=== PATIENT | female | born 1990 | race Two or more races ===

== ENCOUNTER 2017-07-27 08:39 | Emergency (ER) | payer OTHER ==
[~2017-07-27] VITALS: Ht 157.5 cm; Wt 54.4 kg
[~2017-07-27 08:39] MED LIST: KETO10TA2 PO
== END 2017-07-27 14:33 | disposition home or self-care (01) ==
LOC: ER 08:39
DX: K29.60 Other gastritis without bleeding (principal); R10.13 Epigastric pain

== ENCOUNTER 2020-06-15 14:33 | Emergency (ER) | payer OTHER ==
[~2020-06-15] VITALS: Ht 157.5 cm; Wt 89.8 kg
[2020-06-15] MEDS ORDERED: SEROQUEL25 MG (15:17)
[2020-06-15] MEDS ORDERED: RESTORIL30 MG (15:17)
[2020-06-15] MEDS ORDERED: XANAX2 MG (15:18)
[2020-06-15] MEDS ORDERED: LAMICTAL200 M1 (15:18)
[2020-06-15] MEDS ORDERED: NABUMETONE500 MG PO (16:48)
== END 2020-06-15 16:53 | disposition home or self-care (01) ==
LOC: ER 14:33
DX: M54.5 Low back pain (principal); M79.672 Pain in left foot

== ENCOUNTER 2020-06-18 20:04 | Emergency (ER) | payer OTHER ==
[~2020-06-18] VITALS: Ht 157.5 cm; Wt 89.4 kg
[~2020-06-18 20:04] MED LIST changes: +LAMICTAL200 M1; +NABUMETONE500 MG PO; +RESTORIL30 MG; +SEROQUEL25 MG; +XANAX2 MG
[2020-06-18] MEDS ORDERED: SEROQUEL400 MG (20:39)
== END 2020-06-19 06:09 | disposition home or self-care (01) ==
LOC: ER 20:04
DX: J35.01 Chronic tonsillitis (principal); Z03.818 Encounter for observation for suspected exposure to other biological agents ruled out

== ENCOUNTER 2020-11-20 12:03 | Emergency (ER) | payer OTHER ==
[~2020-11-20] VITALS: Ht 157.5 cm; Wt 81.6 kg
[~2020-11-20 12:03] MED LIST changes: +SEROQUEL400 MG
[2020-11-20] MEDS ORDERED: AMBIEN10 MG PO (12:30)
[2020-11-20] MEDS ORDERED: PEPCID AC20 MG PO (17:56)
[2020-11-20] MEDS ORDERED: INTESTINEX680 M1 PO (17:56)
== END 2020-11-20 18:22 | disposition home or self-care (01) ==
LOC: ER 12:03
DX: K29.00 Acute gastritis without bleeding (principal)

== ENCOUNTER 2021-01-27 13:45 | Emergency (ER) | payer OTHER ==
[~2021-01-27] VITALS: Ht 157.5 cm; Wt 77.1 kg
[~2021-01-27 13:45] MED LIST changes: +AMBIEN10 MG PO; +INTESTINEX680 M1 PO; +PEPCID AC20 MG PO
== END 2021-01-27 20:43 | disposition home or self-care (01) ==
LOC: ER 13:45
DX: R10.9 Unspecified abdominal pain (principal)

== ENCOUNTER 2022-04-06 19:46 | Emergency (ER) | payer OTHER ==
[~2022-04-06] VITALS: Ht 157.5 cm; Wt 99.8 kg
[2022-04-06] MEDS ORDERED: VISTARIL50 MG PO (20:20)
[2022-04-07] MEDS ORDERED: VASOTEC5 MG PO (03:55)
== END 2022-04-07 04:13 ==
LOC: ER 19:46
DX: I10 Essential (primary) hypertension (principal)

== ENCOUNTER 2022-07-25 18:49 | Emergency (ER) | payer OTHER ==
[~2022-07-25] VITALS: Ht 160 cm; Wt 90.7 kg
[~2022-07-25 18:49] MED LIST changes: +VASOTEC5 MG PO; +VISTARIL50 MG PO
== END 2022-07-25 20:37 | disposition home or self-care (01) ==
LOC: ER 18:49
DX: J06.9 Acute upper respiratory infection, unspecified (principal); Z20.822 Contact with and (suspected) exposure to COVID-19

== ENCOUNTER 2023-07-29 21:55 | Emergency (ER) | payer OTHER ==
[~2023-07-29] VITALS: Ht 157.5 cm; Wt 99.8 kg
== END 2023-07-30 01:54 ==
LOC: ER 21:55
DX: R00.2 Palpitations (principal); F10.929 Alcohol use, unspecified with intoxication, unspecified

== ENCOUNTER → 2023-11-09 | Emergency (ER) | payer OTHER ==
[~2023-11-09] MED LIST changes: +TRAZODONE HCL300 MG PO
== END | disposition left against medical advice (07) ==
LOC: ER 18:20
DX: Z53.21 Procedure and treatment not carried out due to patient leaving prior to being seen by health care provider (principal)

== ENCOUNTER 2024-02-07 21:49 | Emergency (ER) | payer OTHER ==
[~2024-02-07] VITALS: Ht 157.5 cm; Wt 108.9 kg
[2024-02-07] MEDS ORDERED: IPRATROPIUM BROMIDE 0.5 MG/2.5 ML AMPUL.NEB IH SCH (22:15)
[2024-02-07] MEDS ORDERED: METHYLPREDNISOLONE SOD SUCC 125 MG VIAL IV ONE (22:15)
[2024-02-07] MEDS ORDERED: LEVALBUTEROL HCL 1.25 MG/3 ML SOLUTION IH SCH (22:15)
[2024-02-07 22:29] LABS: ABG PO2 73.8 mmHg (80-100); ABG pCO2 50.1 mmHg (35-45); BASE EXCESS 3.6 mmol/l; BICARBONATE 29.6 mmol/l (23-25); SaO2 94.6 %; Tco2 31.2 mmol/l
[2024-02-07 22:36] LABS: allen test SATISFACTORY; o2 21 %; puncture site RADIAL RIGHT
[2024-02-07 23:34] LABS: HEMATOCRIT 36.9 % (36.0-45.00); HEMOGLOBIN 12.2 g/dL (12.0-15.00); MEAN CORPUSCULAR HEMOGLOBIN 26.7 pg (27.00-32.0); PLATELET COUNT 310 K/uL (150-450); RED BLOOD COUNT 4.56 M/uL (4.00-6.00)
[2024-02-07 23:52] LABS: CALCIUM 8.8 mg/dL (8.5-10.1); CREATININE SERUM 0.71 mg/dL (0.55-1.02); GFR 96.01; POTASSIUM 3.79 mEq/L (3.5-5.1)
[2024-02-08] MEDS ORDERED: ZYNCOF 20-400120 ML PO (01:32)
[2024-02-08] MEDS ORDERED: BUDESONIDE0.5 MG/2 M IH (01:32)
[2024-02-08] MEDS ORDERED: ALBUTEROL2.5 MG/3 M IH (01:32)
[2024-02-08 06:29] LABS: ABG PH 7.397 (7.35-7.45); ABG PO2 83.6 mmHg (80-100); ABG pCO2 47.1 mmHg (35-45); BASE EXCESS 2.7 mmol/l; BICARBONATE 28.3 mmol/l (23-25); SaO2 96.2 %; Tco2 29.8 mmol/l; allen test SATISFACTORY; o2 21 %; puncture site RADIAL RIGHT
== END 2024-02-08 01:35 ==
LOC: ER 21:51
PROVIDERS: General Practice
DX: J98.01 Acute bronchospasm (principal); Z20.822 Contact with and (suspected) exposure to COVID-19